=== PATIENT | male | born 1985 | race African-American/Black ===

== ENCOUNTER 2020-10-16 12:43 | Outpatient (REF) | payer OTHER, SELFPAY ==
--- NOTE | ~2020-10-16 | XR_ITS ---
EXAMINATION: XR LUMBOSACRAL SPINE CLINICAL INFORMATION: Low back pain COMPARISON: None TECHNIQUE: Three views of the lumbosacral spine. FINDINGS: There is normal lumbar segmentation with 5 nonrib-bearing lumbar vertebrae of normal height. There is no lumbar vertebral compression, spondylolisthesis, disc narrowing, destructive process. The SI joints and visualized sacrum are unremarkable. XR/XR lumbar spine 2-3V IMPRESSION: Unremarkable examination.
== END 2020-10-16 12:44 | disposition home or self-care (01) ==
LOC: HO.HMGCX 12:43
PROVIDERS: PCP Internal Medicine; Visit Provider Hospitalist
DX: M54.5 Low back pain (principal)
CPT/HCPCS: 72100

== ENCOUNTER 2023-03-04 09:33 | Outpatient (REF) | payer OTHER, SELFPAY ==
[2023-03-04 11:20] LABS: MANUAL DIFF FLAG NO
[2023-03-04 11:37] LABS: Basophils Percent Auto 0.8 % (0-2); Eosinophils Absolute Auto 0.1 X10*3/uL (0.0-0.4); Eosinophils Percent Auto 1.7 % (0-4); Hematocrit 44.7 % (42.0-52.0); Hemoglobin 14.9 g/dl (14.0-18.0); Imm Gran Abs Auto 0.01 X10*3/uL (0.00-0.03); Imm Gran Pct Auto 0.3 % (0.0-0.4); Lymphocytes Absolute Auto 1.5 X10*3/uL (1.2-4.9); Mean Corpuscular HGB Conc 33.3 g/dl (31.0-36.0); Mean Corpuscular Hemoglobin 28.2 pg (27.0-33.0); Mean Corpuscular Volume 84.5 fL (80.0-98.0); Mean Platelet Volume 11.9 fL (9.4-12.4); Monocytes Absolute Auto 0.2 X10*3/uL (0.1-1.2); Monocytes Percent Auto 6.1 % (2-11); Neutrophils Absolute Auto 1.7 x10*3/uL (2.0-8.3); Neutrophils Percent Auto 48.1 % (45-73); Platelet Count 158 X10*3/uL (160-400); Red Blood Count 5.29 X10*6/uL (4.60-5.80); Red Cell Distribution Width 12.8 % (11.0-16.0); White Blood Count 3.6 X10*3/uL (4.8-10.8)
[2023-03-04 12:19] LABS: Alanine Aminotransferase 56 U/L (0-40); Albumin Level 4.2 g/dL (3.5-5.0); Alkaline Phosphatase 64 U/L (39-117); Anion Gap 13 (12-20); Aspartate Amino Transferase 28 U/L (5-37); Bilirubin Total 0.5 mg/dL (0.0-1.0); Blood Urea Nitrogen 11 mg/dL (9-16); Calcium 9.7 mg/dL (8.4-10.2); Carbon Dioxide 26 mmol/L (22-29); Chloride 106 mmol/L (96-108); Cholesterol 188 mg/dL; Estimated Glomerular Filt Rate > 60; Glucose Fasting 89 mg/dL (60-99); HDL Cholesterol 36 mg/dL; LDL Cholesterol Calculated 132 mg/dl; Potassium 3.8 mmol/L (3.3-5.1); Sodium 141 mmol/L (135-145); Total Protein 7.5 g/dL (6.5-8.0); Triglycerides 101 mg/dL
== END 2023-03-04 09:34 | disposition home or self-care (01) ==
LOC: HO.HMGCLDS 09:33
PROVIDERS: PCP Internal Medicine; Visit Provider Internal Medicine
DX: G43.909 Migraine, unspecified, not intractable, without status migrainosus (principal); G47.9 Sleep disorder, unspecified; R41.840 Attention and concentration deficit; R41.89 Other symptoms and signs involving cognitive functions and awareness
CPT/HCPCS: 36415; 80053; 80061; 84443; 85025

== ENCOUNTER 2023-03-26 12:00 | Outpatient (AMB) | payer OTHER, SELFPAY ==
[2023-03-26 12:06] VITALS: BP 122/68; PULSE 67; O2SAT 99; BMI 32.6
--- NOTE | 2023-03-26 12:06 | MHC.PC.OV ---
Vital Signs 03/26/23 12:06 Height 5 ft 10 in Weight 227 lb 8 oz BMI 32.6 BP 122/68 Blood Pressure Location Lt brachial Position Sitting Pulse 67 Pulse Source Pulse Oximeter Pulse Oximetry (%) 99 Oxygen Delivery Method Room Air Intake Visit Reasons: Follow Up Labs Allergies No Known Allergies Allergy (Verified 03/26/23 12:07) Medication List - Last Reconciled 03/26/23 by Bee Strickland MD No Known Home Meds Tobacco use date assessed: 03/26/23 Dental Screening Dental Screen Date: 03/26/23 Did you have a dental visit in the last 12 months?: Yes Did you have a dental problem in the last 6 months where you did not have access to dental care?: No Was dental information given to patient?: No HPI Follow Up Labs HPI Details Patient is 37-year-old gentleman came in today to go over his lab and to have a follow-up appointment Patient complained of difficulty sleeping and also was complaining of headache which sounded like a migraine headache I prescribed amitriptyline 25 mg which patient never took He says that the headache is better and he feels that it is related to the stress level. Labs done recently reviewed with the patient his liver enzyme ALT is slightly elevated at 56 rest of the liver enzymes are normal WBC count came back at 3.6. His kidney functions are intact lipids are well controlled TSH within normal limit and blood pressure is within normal limit as well Explained the findings to patient We will repeat labs again in 2 or 3 month Patient will book appointment for physical exam and do the labs before that. [facility] Social History Housing: House Patient Tobacco Use Status: Never used Tobacco e-Cigarette/Vaping Use: Never Used service: Yes Current occupational status: employed Cognitive needs: No Hearing needs: No Vision needs: No Questionnaire PHQ-9 Over the last 2 weeks, how often have you been bothered by any of the following problems? 1. Little interest or pleasure in doing things: not at all 2. Feeling down, depressed, or hopeless: not at all 3. Trouble falling or staying asleep, or sleeping too much: not at all 4. Feeling tired or having little energy: not at all 5. Poor appetite or overeating: not at all 6. Feeling bad about yourself - or that you are a failure or have let yourself or your family down: not at all 7. Trouble concentrating on things, such as reading the newspaper or watching television: not at all 8. Moving or speaking so slowly that other people could have noticed. Or the opposite - being so fidgety or restless that you have been moving around a lot more than usual: not at all 9. Thoughts that you would be better off or of hurting yourself in some way: not at all Total score: 0 Depression Screening Interpretation: Negative 00556 - PHQ-9 Billing: Yes Source: Developed by Drs. Ambrose Richmond, Sheree Brooks, Nolberto Pleitez and colleagues, with an educational elder from [employer]. Thrive Questionnaire Date Thrive assessed: 03/26/23 I am a: Patient What is your living situation today?: I have a steady place to live Within the past 12 months, did the food you bought not last and you didn't have the money to get more?: Never true Within the past 12 months, did you worry whether your food would run out before you got money to buy more?: Never true Do you have trouble paying for medicines?: No Do you have trouble getting transportation to medical appointments?: No Do you have trouble paying your heating and electricity bill?: No Do you have trouble taking care of your child, family member or friend?: No Do you have trouble with day-to-day activities such as bathing, preparing meals, shopping, managing finances, etc.?: No Are you currently unemployed and looking for a job?: No Are you interested in more education?: No AUDIT C Alcohol Use Questionnaire (AUDIT-C) 1. How often do you have a drink containing alcohol?: 2-4 times a month 2. How many drinks containing alcohol do you have on a typical day when you are drinking?: 1 or 2 3. How often do you have six or more drinks on one occasion?: Never Total Score: 2 Score Reviewed/Action Taken: Yes JIHAN-7 AMB Questionnaire JIHAN-7 Date JIHAN - 7 assessed: 03/26/23 Feeling nervous, anxious, or on edge: 1 = Several days Not being able to stop or control worryin = Not at all Worrying too much about different things: 0 = Not at all Trouble relaxin = Not at all Being so restless that it is hard to sit still: 0 = Not at all Becoming easily annoyed or irritable: 0 = Not at all Feeling afraid as if something awful might happen: 0 = Not at all Total JIHAN-7 score (0-4 normal; 5-9 mild; 10-14 moderate; 15-21 severe): 1 Source: Developed by Drs. Ambrose Richmond, Sheree Brooks, Nolberto Pleitez and colleagues, with an educational elder from [employer]. JIHAN-7 Assessment Billing JIHAN-7 Assessment Tool: JIHAN-7 Assessment 32606 Review of Systems Const All systems reviewed & are unremarkable except as noted in HPI and below Physical exam (Primary Care) Vital Signs: Last Vital Signs Pulse 67 03/26/23 12:06 BP 122/68 03/26/23 12:06 Pulse Ox 99 03/26/23 12:06 Oxygen Delivery Method Room Air 03/26/23 12:06 BMI result Body Mass Index 32.6 Tobacco/Smoking Status: Tobacco use Status Tobacco use date assessed 03/26/23 03/26/23 12:08 Patient Tobacco Use Status Never used Tobacco 03/26/23 12:08 e-Cigarette/Vaping Use Never Used 03/26/23 12:08 PHQ-9: PHQ-9 Score PHQ-9: Total score 0 03/26/23 12:32 Depression Screening Interpretation: Negative Thrive Assessment: Date of Thrive Assessment Date Thrive assessed 03/26/23 03/26/23 12:32 Const General: no acute distress Orientation/consciousness: patient oriented x3 Eyes General: appearance normal, both eyes and all related structures Resp Effort & Inspection: normal respiratory effort and able to speak in complete sentences Auscultation: clear to auscultation bilaterally Neuro General: patient oriented x3 Psych Mental Status: mental status grossly normal Assessment and Plan Assessment & Plan (1) Neutropenia: Code(s): D70.9 - Neutropenia, unspecified (2) LFT elevation: Code(s): R79.89 - Other specified abnormal findings of blood chemistry Plan Patient is 37-year-old gentleman came in today to go over his lab and to have a follow-up appointment Patient complained of difficulty sleeping and also was complaining of headache which sounded like a migraine headache I prescribed amitriptyline 25 mg which patient never took He says that the headache is better and he feels that it is related to the stress level. Labs done recently reviewed with the patient his liver enzyme ALT is slightly elevated at 56 rest of the liver enzymes are normal WBC count came back at 3.6. His kidney functions are intact lipids are well controlled TSH within normal limit and blood pressure is within normal limit as well Explained the findings to patient We will repeat labs again in 2 or 3 month Patient will book appointment for physical exam and do the labs before that. Orders: Orders Liver Panel Today D70.9 - Neutropenia, unspecified, R79.89 - Other specified abnormal findings of blood chemistry Complete Blood Count Auto Diff Today D70.9 - Neutropenia, unspecified, R79.89 - Other specified abnormal findings of blood chemistry Coding Level of Care Code Est Pt Level 3 (22567) Diagnoses Neutropenia D70.9 LFT elevation R79.89 Additional Codes JIHAN-7 Assessment Billing - JIHAN-7 Assessment Tool: JIHAN-7 Assessment 33335 ([id number])
== END 2023-03-26 13:14 | disposition home or self-care (01) ==
PROVIDERS: PCP Internal Medicine; Visit Provider Internal Medicine
DX: D70.9 Neutropenia, unspecified (principal); R79.89 Other specified abnormal findings of blood chemistry
CPT/HCPCS: 99213